=== PATIENT | male | born 1975 | race African-American/Black ===

== ENCOUNTER 2024-12-28 08:53 | Outpatient (CLI) | payer OTHER ==
--- NOTE | 2024-12-29 10:01 | PROCEDURE NOTE ---
Procedure Note Providers to CC ~ Interpretation: [place] EEG Note # Demographics Type of EEG Read: - Routine EEG - video Patient Location: Outpatient First Name: Flavio Last Name: Yao Date of : 1975 Age: 49 Gender: Male Facility: [facility] Time of Initial Page (): 12/28/2024 10:56 First Contact with Site ( Time): 12/28/2024 10:58 # EEG Interpretation Start Time of EEG Read (): 12/29/2024 09:18 Stop Time of EEG Read (): 12/29/2024 09:43 Duration: 0h 25m Technical Details: - The EEG electrodes were placed using the standard International 10-20 system of electrode placement. Video and an accessory EKG lead were used during the course of this study. - This study was recorded using the [employer] EEG software Indication: - seizure # Description Photic Stimulation: Performed Hyperventilation: performed Phases Captured: - awake - drowsy Symmetry: symmetric Posterior Dominant Rhythm: - poorly defined 8Hz Predominant Frequencies: - posterior dominant alpha (8-12 Hz) - abundant (50-89%) Superimposed Frequencies: - theta (4-7 Hz) - rare (<1%) Amplitude: normal Reactivity: yes Variability: yes Continuity: continuous EKG: NSR # Abnormalities Stimulation: - photic stimulation does NOT cause abnormalities - hyperventilation does NOT cause abnormalities Epileptiform Abnormalities: - NOT present Focal Slowing: no Seizure: - NOT present # Impression Impression: normal # Clinical Correlation Clinical Correlation: This is a normal EEG in the awake and drowsy state. No epileptiform discharges, focal slowing, or seizures were seen. A normal EEG does not exclude nor support the diagnosis of epilepsy. # Demographics First Name: Flavio Last Name: Yao Facility: [facility] CINTHYA LEDESMA MD Dec 29, 2024 10:01
== END 2024-12-28 23:59 | disposition home or self-care (01) ==
LOC: RAD 08:53
PROVIDERS: ATTEND Student in an Organized Health Care Education/Training Program
DX: R56.9 Unspecified convulsions (principal)
CPT/HCPCS: 95816